=== PATIENT | female | born 1970 | race Caucasian/White ===

== ENCOUNTER 2023-07-04 14:23 | Outpatient (CLI) | payer OTHER, SELFPAY | END 2023-07-04 14:24 | disposition home or self-care (01) | PROVIDERS: PCP Family Medicine; Visit Provider Physician Assistant | DX: R10.11 Right upper quadrant pain (principal); R10.13 Epigastric pain | CPT/HCPCS: 80076; 83690 ==

== ENCOUNTER 2025-07-10 13:12 | Outpatient (CLI) | payer OTHER, SELFPAY | END 2025-07-10 13:13 | disposition home or self-care (01) | LOC: NFLDREF 07-21 14:49 | PROVIDERS: PCP Nurse Practitioner Family; Referring Provider Family Medicine; Visit Provider Nurse Practitioner Family | DX: R03.0 Elevated blood-pressure reading, without diagnosis of hypertension (principal); R53.83 Other fatigue; L71.9 Rosacea, unspecified; F41.9 Anxiety disorder, unspecified; Z13.6 Encounter for screening for cardiovascular disorders | CPT/HCPCS: 80053; 80061; 84443 ==

== ENCOUNTER 2025-08-29 08:18 | Outpatient (CLI) | payer OTHER, SELFPAY ==
--- NOTE | 2025-08-29 09:37 | P.ANES_ITS ---
Anesthesia Charges Start Date/Time Anesthesia Start Date: 08/29/25 Anesthesia Start Time: 08:55 Stop Date/Time Anesthesia Stop Date: 08/29/25 Anesthesia Stop Time: 09:33 Coding CPT Codes CPT Codes: MATIASS LWR INTST NDSC NOS - [id number] ([id number]) P2 - PATIENT W/MILD SYST DISEASE, QZ - ORACLE SPECIALIST SVC W/O LINGO CLEANER BY
--- NOTE | 2025-08-29 09:37 | W.ANESCHARGE ---
Anesthesia Charges Start Date/Time Anesthesia Start Date: 08/29/25 Anesthesia Start Time: 08:55 Stop Date/Time Anesthesia Stop Date: 08/29/25 Anesthesia Stop Time: 09:33 Coding CPT Codes CPT Codes: MATIASS LWR INTST NDSC NOS - [id number] ([id number]) P2 - PATIENT W/MILD SYST DISEASE, QZ - POMOLOGY TEACHER SVC W/O GUIDE PLANT BY
== END 2025-08-29 08:19 | disposition home or self-care (01) ==
LOC: OP CLINIC 08:19
PROVIDERS: PCP Nurse Practitioner Family; Visit Provider Surgery
DX: Z12.11 Encounter for screening for malignant neoplasm of colon (principal); D12.0 Benign neoplasm of cecum; D12.2 Benign neoplasm of ascending colon
CPT/HCPCS: 00811; 00812; 45385; 88305; J2704

== ENCOUNTER 2025-09-18 13:13 | Outpatient (CLI) | payer OTHER, SELFPAY ==
--- NOTE | 2025-10-14 09:35 | W.PM.SLEEP ---
Sleep Study Details Details Interpreting Provider: Maura Date of Sleep Study: 09/18/25 Sleep Study Details: STUDY TYPE:? Home unattended ? BMI:? 31.61 ORDERING PROVIDER:? Maura INDICATION:? Concern for sleep apnea ? SLEEP SUMMARY:? 383 minutes monitored RESPIRATORY SUMMARY:? AHI 42.4, central index 3.9 Low oxygen 77 10.6% of study oxygen less than 90% Snoring 85.3% PERIODIC LIMB MOVEMENTS OF SLEEP:? Not recorded CARDIAC:? Range 52-107, mean 63.5 beats per minute IMPRESSION:? Severe obstructive sleep apnea with a few central apneas RECOMMENDATION: In-lab titration versus AutoSet CPAP with close follow-up.
== END 2025-09-18 13:14 | disposition home or self-care (01) ==
LOC: SLEEP 13:14
PROVIDERS: PCP Nurse Practitioner Family; Visit Provider Otolaryngology
DX: G47.33 Obstructive sleep apnea (adult) (pediatric) (principal)
CPT/HCPCS: 95806